=== PATIENT | male | born 1970 | race Caucasian/White ===

== ENCOUNTER 2024-09-13 23:20 | Emergency (ER) | payer MEDICAID, SELFPAY ==
[2024-09-13 23:32] VITALS: BP 167/105; PULSE 98; RESP 18; TEMP 36.7; O2SAT 100; BMI 30.4
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
[2024-09-14] MEDS: TET/DIPHTH/PERT-ADULT 0.5ML SYRINGE 0.5 ML IM (00:22)
[2024-09-14] MEDS: IBUPROFEN 600 MG TABLET PO (00:22)
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
[2024-09-14 00:45] VITALS: BP 146/93; PULSE 88; RESP 16; O2SAT 97
[2024-09-14] MEDS: BACITRACIN ZINC OINT 30GM TUBE TP (01:00)
[2024-09-14 01:01] VITALS: BP 140/87; PULSE 87; RESP 16; TEMP 36.7; O2SAT 97
== END 2024-09-14 01:05 | disposition home or self-care (01) ==
PROVIDERS: Emergency Provider Emergency Medicine
DX: S80.812A Abrasion, left lower leg, initial encounter (principal); M25.572 Pain in left ankle and joints of left foot; E11.9 Type 2 diabetes mellitus without complications; F17.210 Nicotine dependence, cigarettes, uncomplicated; V03.10XA Pedestrian on foot injured in collision with car, pick-up truck or van in traffic accident, initial encounter; Z23 Encounter for immunization
CPT/HCPCS: 73562; 73590; 73610; 73630; 90471; 90715; 99284